=== PATIENT | female | born 1980 | race Caucasian/White ===

== ENCOUNTER 2016-08-12 16:39 | Inpatient (IN) | payer MEDICAID ==
[~2016-08-12] VITALS: Ht 160 cm; Wt 85.7 kg
[~2016-08-12 16:39] MED LIST: ORTHTAB3 PO
[2016-08-19 11:17] LABS: AUTOMATED NEUTROPHIL # 9.2 TH/MM3 (1.8-7.7); BASOPHIL # 0.1 TH/MM3 (0-0.2); BASOPHIL % 0.7 % (0.0-2.0); EOSINOPHIL # 0.1 TH/MM3 (0-0.4); EOSINOPHIL % 0.5 % (0.0-4.0); HEMATOCRIT 37.1 % (35.0-46.0); HEMO FLAGS DIFF FINAL; LYMPH % 17.2 % (9.0-44.0); LYMPHOCYTE # 2.2 TH/MM3 (1.0-4.8); MEAN CORPUSCULAR HEMOGLOBIN 26.6 PG (27.0-34.0); MEAN CORPUSCULAR HGB CONC 32.8 % (32.0-36.0); MONO % 7.8 % (0.0-8.0); NEUT % 73.8 % (16.0-70.0); PLATELET COUNT 309 TH/MM3 (150-450); RED BLOOD COUNT 4.57 MIL/MM3 (4.00-5.30); RED CELL DISTRIBUTION WIDTH 15.5 % (11.6-17.2); WHITE BLOOD COUNT 12.5 TH/MM3 (4.0-11.0)
[2016-08-19 11:22] LABS: BLOOD, URINE NEG (NEG); COMMENT (UR) CULT NOT INDICATED; CULTURE IF INDICATED CULT NOT INDICATED; GLUCOSE,URINE NEG (NEG); KETONE, URINE NEG (NEG); MUCUS URINE FEW /lpf (OCC); NITRITE,URINE NEG (NEG); PH, URINE 7.5 (5.0-8.5); SQUAMOUS EPITHELIAL CELL URINE 19 /hpf (0-5); URINE COLOR YELLOW (YELLW/STRAW)
[2016-08-19] MEDS ORDERED: PREN29TA PO (11:23)
[2016-08-19] MEDS ORDERED: LACTATED RINGER'S 1000 ML IV SCH (11:45)
[2016-08-19] MEDS ORDERED: LACTATED RINGER'S 1000 ML IV ONE (11:45)
[2016-08-19] MEDS ORDERED: CITRIC ACID-SODIUM CITRATE LIQ 30 ML UDC PO SCH (11:45)
[2016-08-19] MEDS ORDERED: ceFAZolin 2 GM PREMIX 50 ML IV SCH (11:45)
[2016-08-19] MEDS ORDERED: OXYTOCIN 10 UNIT/ML AMP ONE (12:30)
[2016-08-19] MEDS ORDERED: EPIDURAL-DO NOT ADMINISTER ANTICOAGULANTS PRN (13:15)
[2016-08-19] MEDS ORDERED: EPIDURAL-NALOXONE HCL 0.4 MG/ML AMP IV PRN (13:15)
[2016-08-19] MEDS ORDERED: EPIDURAL-NO SYSTEMIC NARCOTICS PRN (13:15)
[2016-08-19] MEDS ORDERED: EPIDURAL-DIPHENHYDRAMINE HCL 50 MG/ML VIAL IV PUSH PRN (13:15)
--- NOTE | 2016-08-19 13:22 | MH ---
cc: TONIA WARD DATE OF ADMISSION 08/19/2016 PREOPERATIVE DIAGNOSIS Previous section x2. HISTORY Ms. Guido is a 36-year-old white female 3, para 2 who has had two prior sections. She tried to have a the last time, but ended up with a . She is here today for a repeat section. She understands the risks, benefits and alternatives and has agreed to proceed. PAST OB HISTORY She is para 2-0-0-2. She had a section for failure to progress and a failed . Her labs have been normal. 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 Severe prematurity 2. 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 PAST SURGICAL HISTORY 1. section x2 2. 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 Eye surgery for extreme prematurity FAMILY HISTORY Negative SOCIAL HISTORY She is . Does not smoke, drink or take drugs. ALLERGIES ERYTHROMYCIN MEDICATIONS current medications are Vitamins one p.o. q. day. REVIEW OF SYSTEMS She denies fevers, chills, no blurred vision. No scotoma. No chest pain or palpitations. No cough. No shortness of breath. GI: Normal bowel and bladder function. : She denies any bleeding, rupture of membranes, good movement. PSYCHIATRIC: She has had anxiety or depression. PHYSICAL EXAM This is a well-developed, well-nourished female in no acute distress laying comfortably on the gurney. CHEST: Clear to auscultation and percussion. HEART: Regular rate and rhythm without murmur or gallop. ABDOMEN: The abdomen is gravid and nontender. The Pfannenstiel incision is well healed and we will removed that. PELVIC: The pelvic exam is deferred. EXTREMITIES: There is no clubbing, cyanosis or edema. ASSESSMENT/PLAN 1. Intrauterine at 39 weeks for a repeat section. 2. Allergic to erythromycin, we will avoid that. R. MD HECTOR Buckner/JONATHAN /1:04 PM /1:14 PM
[2016-08-19] MEDS ORDERED: MORPHINE SULFATE PF 5 MG/10 ML VIAL ONE (14:53)
[2016-08-19] MEDS ORDERED: oxyCODONE/ACETAMINOPHEN 5 MG/325 MG TAB PO PRN ×2 (15:00)
[2016-08-19] MEDS ORDERED: SODIUM CHLORIDE 0.9% FLUSH 10 ML FLUSH IV FLUSH PRN (15:00)
[2016-08-19] MEDS ORDERED: OXYTOCIN 30 UNITS-500ML PREMIX 500 ML IV ONE (15:00)
[2016-08-19] MEDS ORDERED: ONDANSETRON HCL 4 MG/2 ML VIAL IV PUSH PRN (15:00)
[2016-08-19] MEDS ORDERED: LACTATED RINGER'S 1000 ML INJ 1,000 ML IV ONE (15:20)
[2016-08-19] MEDS ORDERED: ceFAZolin 2 GM/50 ML BAG IV ONE (15:25)
[2016-08-19] MEDS ORDERED: OXYTOCIN 30 UNITS-500ML PREMIX 500 ML ONE (15:42)
[2016-08-19] MEDS ORDERED: diphenhydrAMINE HCL 50 MG/ML VIAL ONE (15:42)
[2016-08-19 16:40] VITALS: BP 135/69; PULSE 72; RESP 16; TEMP 99.4
[2016-08-19] MEDS ORDERED: MEPERIDINE HCL 25 MG/ML VIAL IV ONE (16:45)
[2016-08-19] MEDS ORDERED: LACTATED RINGER'S 1000 ML INJ 1,000 ML IV SCH (19:50)
[2016-08-19 20:00] VITALS: BP 140/69; PULSE 74; RESP 18; TEMP 99
[2016-08-19] MEDS: EPIDURAL-DIPHENHYDRAMINE HCL 50 MG CAP PO PRN (23:21)
[2016-08-19 23:57] VITALS: BP 134/71; PULSE 74; RESP 18; TEMP 99.4
[2016-08-20] MEDS ORDERED: OXYTOCIN 30 UNITS-500ML PREMIX 500 ML IV PRN (01:00)
[2016-08-20] MEDS: IBUPROFEN 600 MG TAB PO PRN ×4 (02:37→20:38)
[2016-08-20 04:00] VITALS: BP 115/66; PULSE 67; RESP 18; TEMP 98
[2016-08-20 06:02] LABS: AUTOMATED NEUTROPHIL # 11.6 TH/MM3 (1.8-7.7); BASOPHIL % 0.3 % (0.0-2.0); EOSINOPHIL % 0.3 % (0.0-4.0); HEMO FLAGS DIFF FINAL; LYMPH % 16.9 % (9.0-44.0); LYMPHOCYTE # 2.7 TH/MM3 (1.0-4.8); MEAN CORPUSCULAR HEMOGLOBIN 26.9 PG (27.0-34.0); MEAN CORPUSCULAR HGB CONC 32.7 % (32.0-36.0); NEUT % 71.5 % (16.0-70.0); PLATELET COUNT 271 TH/MM3 (150-450); RED BLOOD COUNT 3.78 MIL/MM3 (4.00-5.30); RED CELL DISTRIBUTION WIDTH 15.7 % (11.6-17.2); WHITE BLOOD COUNT 16.2 TH/MM3 (4.0-11.0)
[2016-08-20 08:00] VITALS: BP_SYST 105; BP_SYST 120; BP_DIAS 61; BP_DIAS 78; PULSE 68; PULSE 71; RESP 16; TEMP 97.8; TEMP 98.4
[2016-08-20] MEDS: EPIDURAL-DIPHENHYDRAMINE HCL 50 MG CAP PO PRN (08:35)
[2016-08-20] MEDS: DOCUSATE SODIUM 50 MG/SENNA 8.6 MG TAB PO PRN (08:36)
--- NOTE | 2016-08-20 09:49 | HHI.OB ---
Subjective Post Operative Day: 1 Objective Vitals/I&O Vital Signs Date Time Temp Pulse Resp B/P Pulse Ox O2 Delivery O2 Flow Rate FiO2 08/20/16 08:00 120/78 08/20/16 08:00 98.4 68 16 08/20/16 08:00 97.8 71 105/61 08/20/16 04:00 67 115/66 08/20/16 04:00 98.0 18 08/19/16 23:57 99.4 74 18 134/71 08/19/16 20:00 99.0 74 18 140/69 08/19/16 16:40 99.4 72 16 135/69 Result Diagram: 08/20/16 0526 Objective Remarks GENERAL: Well-nourished, well-developed patient. CARDIOVASCULAR: Regular rate and rhythm without murmurs, gallops, or rubs. RESPIRATORY: Breath sounds equal bilaterally. No accessory muscle use. ABDOMEN/GI: Abdomen soft, non-tender, bowel sounds present. Incision: Clean, dry and intact. Fundus: Firm, non-tender at umbilicus. GENITOURINARY: Light to moderate bleeding. EXTREMITIES: No cyanosis or edema, non-tender, without signs of DVT. Medications and IVs Current Medications Medications (Trade) Dose Ordered Sig/De Route Start Time Stop Time Status Last Admin (Lr 1000 ml Inj) 1,000 ml @ 100 mls/hr Q10H IV 08/19/16 19:50 08/20/16 15:49 08/19/16 19:50 (NS Flush) 2 ml BID IV FLUSH 08/19/16 21:00 (NS Flush) 2 ml UNSCH PRN IV FLUSH 08/19/16 15:00 (Mylicon Chew) 80 mg QID PRN PO 08/19/16 15:00 (Motrin) 600 mg Q6H PRN PO 08/19/16 15:00 08/20/16 08:35 (Percocet 5-325 Mg) 1 tab Q4H PRN PO 08/19/16 15:00 (Percocet 5-325 Mg) 2 tab Q4H PRN PO 08/19/16 15:00 08/20/16 08:36 (Clara-Colace) 2 tab Q12H PRN PO 08/19/16 15:00 08/20/16 08:36 (M-M-R Ii Inj) 0.5 ml ONCE ONCE SQ 08/20/16 16:00 08/20/16 16:01 (Boostrix Inj) 0.5 ml ONCE ONCE IM 08/20/16 16:00 08/20/16 16:01 (Zofran Inj) 4 mg Q6H PRN IV PUSH 08/19/16 15:00 Miscellaneous Information NO SYSTEMIC NARCOTICS TO BE GIVEN FO... UNSCH PRN .XX 08/19/16 13:15 08/20/16 13:14 (Narcan Inj) 0.4 mg UNSCH PRN IV 08/19/16 13:15 08/20/16 13:14 (Benadryl Inj) 25 mg Q6H PRN IV PUSH 08/19/16 13:15 08/20/16 13:14 (Benadryl) 50 mg Q6H PRN PO 08/19/16 13:15 08/20/16 13:14 08/20/16 08:35 Miscellaneous Information ALL NURSING DEPARTMENTS UNSCH PRN .XX 08/19/16 13:15 08/20/16 13:14 Assessment/Plan Problem List: (1) S/P repeat low transverse Plan: ROUTINE (2) Anemia Plan: WILL TREAT WITH ORAL IRON POST Assessment and Plan PT DOING WELL ENCOURAGED TO SHOWER TODAY PAIN WELL MANAGED AT THIS TIME WITH MOTRIN, PT KNOWS SHE HAS PERCOCET AVAILABLE BONDING WITH INFANT ROUTINE Discharge Planning DC HOME IN 1-2 D Elaine Valverde August 20, 2016 09:49
--- NOTE | 2016-08-20 09:50 | HHI.DCPOC ---
Discharge Care Plan Diagnosis: (1) S/P repeat low transverse (2) Anemia Your Health Problems Are: delivery (C) Additional Problems ORAL DAILY IRON ONCE YOU ARE NO LONGER TAKING PAIN MEDICATION Report Symptoms to Your Doctor -Temperate above 100.5 degrees -Redness, of incision or excessive or foul smelling drainage -Unusual pain or calf pain -Increased vaginal bleeding -Painful or difficulty urinating -Feelings of extreme sadness or anxiety after 2 weeks Goals to Promote Your Health * To prevent worsening of your condition and complications * To maintain your health at the optimal level Directions to Meet Your Goals Take your medications as prescribed Follow your dietary instruction Follow activity as directed Ensure plenty of rest for recovery Drink fluids for hydration Keep your appointments as scheduled Take your immunizations and boosters as scheduled If your symptoms worsen call your PCP, if no PCP go to Urgent Care Center or Emergency Room Smoking is Dangerous to Your Health. Avoid second hand smoke Call the 24-hour crisis hotline for domestic abuse at Elaine Hartley August 20, 2016 09:50
--- NOTE | 2016-08-20 09:52 | HHI.DS ---
Admission Date August 19, 2016 at 09:58 Discharge Date: August 21, 2016 Admitting Diagnosis TERM PREVIOUS SECTION Diagnosis: (1) Anemia Diagnosis: Secondary (2) S/P repeat low transverse Diagnosis: Principal Delivery Date: August 19, 2016 : Repeat Reason: previous : Male Brief History term previous c section repeat c section Hospital Course routine Pt Condition on Discharge: Good Discharge Disposition: Discharge Home Discharge Instructions Follow up Referrals: ODD TICKET CLERK - 1 Week @ [facility] [place] New Medications: Ibuprofen (Ibuprofen) 600 Mg Tab 600 MG PO Q6H Pain Management #30 TAB Oxycodone-Acetaminophen (Oxycodone-Acetaminophen) 5-325 mg Tab 1 TAB PO Q4H moderate pain #30 TAB Continued Medications: Vit-Iron Carbonyl ( Plus Iron 29-1 mg) 1 Tab Tab 1 TAB PO DAILY PRN Nutritional Supplement #30 Ref 0 TAB Discontinued Medications: Norgestimate-Ethinyl Estradiol (Ortho Tri-Cyclen Lo) Cycln Lo Tab 1 TAB PO DAILY CONTRACPET #28 Ref 11 PACK Elaine Hartley August 20, 2016 09:52
--- NOTE | 2016-08-20 15:00 | MP ---
cc: TONIA AVILES DATE OF SURGERY: 08/19/2016 PREOPERATIVE DIAGNOSIS 1. Intrauterine at 39 weeks. 2. Previous section x2, desires repeat. 3. Desires permanent sterilization. POSTOPERATIVE DIAGNOSIS 1. Intrauterine at 39 weeks. 2. Previous section x2, desires repeat. 3. Desires permanent sterilization. 4. Massive pelvic adhesions. PROCEDURE Extraperitoneal repeat low transverse section. ANESTHESIA Spinal. SURGEON Lillie Aviles MD FINDINGS A normal male infant, weight 8 pounds 11 ounces, Apgars 9 and 9. The uterus was totally encased in adhesions and there was a large peritoneal window, probably 5 cm x 8, which we repaired. COMPLICATIONS Inability to get the tubal done because of the peritoneum being fixed onto the uterus. COUNTS Correct. ESTIMATED BLOOD LOSS 500 cc. FLUIDS Crystalloids. CONDITION The patient tolerated the procedure well and went to the recovery room in good condition. DETAILS OF PROCEDURE The patient was taken to the operating room, identified by name band and verbally and giving a spinal anesthetic. She was prepped and draped in the usual sterile manner for a repeat section. A timeout was taken and everything was verified. The old incision was excised without difficulty. The incision was taken down to the fascia without difficulty. The fascia was taken off the rectus muscles, however, the rectus muscles were both splayed way laterally and the peritoneum was plastered onto the anterior uterine surface. After several attempts to try to get into the peritoneum we failed and a small incision was made over the peritoneal window. We could see the baby clearly. At this point the incision was taken down until we saw clear amniotic fluid. The vertex was grasped and the incision was extended with the surgeon's fingers. With gentle fundal pressure we tried to deliver the baby, however, it was somewhat tight. Therefore, we went ahead and applied a vacuum and with fundal pressure and the vacuum the baby was easily delivered. The cord clamping was delayed for 45 seconds and the cord was doubly clamped and cut and handed to the resuscitation team. The placenta was delivered manually without difficulty and the uterus was curettaged twice. We tried again to get into the cavity to tie the tubes, however, we were unsuccessful on multiple attempts. At this point we tried to reapproximate the uterine tissue because of the large peritoneal window. It was uncertain where the bladder was so I had them fill the bladder up with 300 cc of milk. The bladder was mostly on the right side. A second layer was placed with 3-0 chromic because I did not want to injure the bladder. Once the bladder was filled we saw clearly that it was not involved and placed a second layer. A couple of [id number] were needed around the lower uterine segment for hemostasis. At this point hemostasis was excellent and the rectus muscles were re-approximated together with 0 Vicryl in a running fashion without difficulty. The fascia was then repaired with 0 Vicryl from lateral to midline bilaterally with good results. The fascia was even somewhat distorted on this case. At this point the subcu was irrigated with some fluid and 3-0 Vicryl was used to reapproximate the subcutaneous. The skin was repaired with 4-0 Monocryl in a subcuticular fashion. The patient tolerated the procedure well and went to the recovery room in good condition. R. MD MAREK BucknerV/LIA /2:57 PM /2:46 PM
[2016-08-20] MEDS ORDERED: MEASLES, MUMPS, RUBELLA VACCINE 0.5 ML VIAL SQ ONE (16:00)
[2016-08-20] MEDS ORDERED: DIPHTH/TETANUS/ACEL PERTUSSIS (BOOSTER) 0.5 ML VIAL/PFS IM ONE (16:00)
[2016-08-20] MEDS: SIMETHICONE 80 MG CHEWABLE TAB PO PRN (17:13)
[2016-08-20 19:40] VITALS: BP 137/75; PULSE 76; RESP 16; TEMP 97.9
[2016-08-21] MEDS: IBUPROFEN 600 MG TAB PO PRN ×3 (06:14→19:58)
[2016-08-21 07:50] VITALS: BP 113/71; PULSE 80; RESP 18; TEMP 97.7
[2016-08-21] MEDS ORDERED: OXYC1TAB63 PO (08:39)
[2016-08-21] MEDS ORDERED: IBUP-232 PO (08:39)
[2016-08-21] MEDS: SODIUM CHLORIDE 0.9% FLUSH 10 ML FLUSH IV FLUSH SCH ×2 (09:00→22:52)
[2016-08-21] MEDS: DOCUSATE SODIUM 50 MG/SENNA 8.6 MG TAB PO PRN (10:31)
[2016-08-21] MEDS: SIMETHICONE 80 MG CHEWABLE TAB PO PRN ×2 (10:31→19:58)
--- NOTE | 2016-08-21 10:54 | HHI.OB ---
Subjective Post Operative Day: 2 Objective Vitals/I&O Vital Signs Date Time Temp Pulse Resp B/P Pulse Ox O2 Delivery O2 Flow Rate FiO2 08/21/16 07:50 80 18 113/71 08/21/16 07:50 97.7 08/20/16 19:40 97.9 76 16 137/75 Result Diagram: 08/20/16 0526 Objective Remarks GENERAL: Well-nourished, well-developed patient. CARDIOVASCULAR: Regular rate and rhythm without murmurs, gallops, or rubs. RESPIRATORY: Breath sounds equal bilaterally. No accessory muscle use. ABDOMEN/GI: Abdomen soft, non-tender, bowel sounds present. Incision: Clean, dry and intact. Fundus: Firm, non-tender at umbilicus. GENITOURINARY: Light to moderate bleeding. EXTREMITIES: No cyanosis or edema, non-tender, without signs of DVT. Medications and IVs Current Medications Medications (Trade) Dose Ordered Sig/De Route Start Time Stop Time Status Last Admin (NS Flush) 2 ml BID IV FLUSH 08/19/16 21:00 (NS Flush) 2 ml UNSCH PRN IV FLUSH 08/19/16 15:00 (Mylicon Chew) 80 mg QID PRN PO 08/19/16 15:00 08/21/16 10:31 (Motrin) 600 mg Q6H PRN PO 08/19/16 15:00 08/21/16 06:14 (Percocet 5-325 Mg) 1 tab Q4H PRN PO 08/19/16 15:00 (Percocet 5-325 Mg) 2 tab Q4H PRN PO 08/19/16 15:00 08/20/16 08:36 (Clara-Colace) 2 tab Q12H PRN PO 08/19/16 15:00 08/21/16 10:31 (Zofran Inj) 4 mg Q6H PRN IV PUSH 08/19/16 15:00 Assessment/Plan Problem List: (1) S/P repeat low transverse Plan: ROUTINE (2) Anemia Plan: WILL TREAT WITH ORAL IRON POST Assessment and Plan PT DOING WELL ENCOURAGED TO SHOWER TODAY PAIN WELL MANAGED WITH MOTRIN, RX FOR PERCOCET GIVEN ROUTINE Discharge Planning DC HOME TODAY Elaine Hartley August 21, 2016 10:54
[2016-08-21 19:50] VITALS: BP 117/71; PULSE 62; RESP 18; TEMP 97.9
[2016-08-22] MEDS: IBUPROFEN 600 MG TAB PO PRN ×2 (03:31→15:21)
[2016-08-22] MEDS: DOCUSATE SODIUM 50 MG/SENNA 8.6 MG TAB PO PRN (03:32)
[2016-08-22 08:00] VITALS: BP 121/71; PULSE 68; RESP 18; TEMP 97.8; O2SAT 99
[2016-08-22 09:00] VITALS: BP 121/71; PULSE 68; RESP 18; TEMP 97.8
--- NOTE | 2016-08-22 09:35 | HHI.OB ---
Subjective Post Operative Day: 3 Objective Vitals/I&O Vital Signs Date Time Temp Pulse Resp B/P Pulse Ox O2 Delivery O2 Flow Rate FiO2 08/22/16 08:00 97.8 68 18 121/71 99 08/21/16 19:50 97.9 08/21/16 19:50 62 18 117/71 Result Diagram: 08/20/16 0526 Objective Remarks GENERAL: Well-nourished, well-developed patient. CARDIOVASCULAR: Regular rate and rhythm without murmurs, gallops, or rubs. RESPIRATORY: Breath sounds equal bilaterally. No accessory muscle use. ABDOMEN/GI: Abdomen soft, non-tender, bowel sounds present. Incision: Clean, dry and intact. Fundus: Firm, non-tender at umbilicus. GENITOURINARY: Light to moderate bleeding. EXTREMITIES: No cyanosis or edema, non-tender, without signs of DVT. Medications and IVs Current Medications Medications (Trade) Dose Ordered Sig/De Route Start Time Stop Time Status Last Admin (NS Flush) 2 ml BID IV FLUSH 08/19/16 21:00 (NS Flush) 2 ml UNSCH PRN IV FLUSH 08/19/16 15:00 (Mylicon Chew) 80 mg QID PRN PO 08/19/16 15:00 08/21/16 19:58 (Motrin) 600 mg Q6H PRN PO 08/19/16 15:00 08/22/16 03:31 (Percocet 5-325 Mg) 1 tab Q4H PRN PO 08/19/16 15:00 (Percocet 5-325 Mg) 2 tab Q4H PRN PO 08/19/16 15:00 08/20/16 08:36 (Clara-Colace) 2 tab Q12H PRN PO 08/19/16 15:00 08/22/16 03:32 (Zofran Inj) 4 mg Q6H PRN IV PUSH 08/19/16 15:00 Assessment/Plan Problem List: (1) S/P repeat low transverse Plan: ROUTINE (2) Anemia Plan: WILL TREAT WITH ORAL IRON POST Assessment and Plan PT DOING WELL PAIN WELL MANAGED WITH MOTRIN, RX FOR PERCOCET GIVEN ROUTINE Discharge Planning DC HOME TODAY Attending Attestation Elaine Piña August 22, 2016 09:35
== END 2016-08-22 15:31 | disposition home or self-care (01) | DRG 766 ==
LOC: H2EB 08-19 09:58 → H1EA 08-19 16:32
PROVIDERS: ADMIT Obstetrics & Gynecology; ATTEND Obstetrics & Gynecology
PROC: 10D00Z1 Extraction of Products of Conception, Low, Open Approach (ICD-10-PCS; principal; 2016-08-19)
DX: O34.211 Maternal care for low transverse scar from previous cesarean delivery (principal); D64.9 Anemia, unspecified; Z37.0 Single live birth; O99.02 Anemia complicating childbirth; O99.89 Other specified diseases and conditions complicating pregnancy, childbirth and the puerperium; N73.6 Female pelvic peritoneal adhesions (postinfective); H54.62 Unqualified visual loss, left eye, normal vision right eye; Z30.2 Encounter for sterilization; Z3A.39 39 weeks gestation of pregnancy
CPT/HCPCS: 59025; 81001; 85025; 86850; 86900; 86901; 90715; J0690; J1200; J2274; J2590; J7120; Q0163